=== PATIENT | male | born 1945 | race Caucasian/White ===

== ENCOUNTER → 2017-10-01 | Outpatient (CLI) | payer MEDICARE, OTHER ==
[~2017-10-01] MED LIST: AMIO200T PO; ASPI81TA11 PO; ASPI81TA82 PO; ATOR40TA49 PO; BENT20TA PO; CITA20TA4 PEG; FINA5TAB77 PO; GABA100C4 PO; ISOS30 PO; LORA0.5T PO; LORT5TAB PO; METO25 PO; METO50 PO; MIRA33502 PO; PARO20 PO; PROT40TA OR; ZOLP1TAB32 PO
--- NOTE | 2017-10-02 10:25 | RSPPFT ---
DATE OF PROCEDURE: 10/01/17 COMMENTS: VOLUMES DYNAMIC: FVC and FEV1 low normal. FLOWS: FEV1% and FEF 25-75 normal. DIFFUSION: Moderately reduced at 55%. IMPRESSION: Patient was unable to perform full lung volumes, some difficult with this study, but has low normal FVC and FEV1 and no significant airways obstruction. There is a moderate reduction in diffusion, however, which requires clinical correlation.
== END ==
LOC: PHRSP 10:25
PROVIDERS: ATTEND Internal Medicine Interventional Cardiology
DX: Z01.811 Encounter for preprocedural respiratory examination (principal); I48.91 Unspecified atrial fibrillation
CPT/HCPCS: 94010; 94729